=== PATIENT | female | born 1995 | race Caucasian/White ===

== ENCOUNTER 2020-01-02 14:30 | Emergency (ER) | payer SELFPAY ==
[~2020-01-02] VITALS: Ht 158 cm; Wt 67.6 kg
--- NOTE | 2020-01-02 15:23 | ED GU-Female ---
General Chief Complaint: Female Reproductive Stated Complaint: LOWER STOMACH PAIN,1 WEEK PREG Source: patient, family Exam Limitations: no limitations History of Present Illness Date Seen by Provider: Jan 02, 2020 Time Seen by Provider: 15:15 Initial Comments 24-year-old Maori speaking female presents with her , (also her tra nslator) with complaint of brown vaginal spotting for the past week. Positive test 2 weeks ago 2 at home. Has not seen an OB. This is her first . Allergies and Home Medications Patient Home Medication List Home Medication List Reviewed: Yes Review of Systems Review of Systems Constitutional: No fever, No malaise Respiratory: No cough, No dyspnea on exertion Cardiovascular: No chest pain, No edema Gastrointestinal: No abdominal pain, No loss of appetite, No nausea, No vomiting Genitourinary: see HPI; denies flank pain, denies hematuria Musculoskeletal: No back pain, No joint pain Past Rmoxulz-Liwjfl-Jzkrgi Hx Past Med/Social Hx: Reviewed Nursing Past Med/Soc Hx Patient Social History Recent Foreign Travel: No Contact w/Someone Who Travel: No Physical Exam Vital Signs Vital Signs - First Documented 01/02/20 14:45 Temp 36.6 Pulse 78 Resp 16 B/P (MAP) 139/72 (94) Pulse Ox 100 O2 Delivery Room Air Capillary Refill : Height, Weight, BMI Height: '" Weight: lbs. oz. kg; BMI Method: General Appearance: WD/WN, no apparent distress Cardiovascular: regular rate, rhythm, no edema Respiratory: chest non-tender, lungs clear Gastrointestinal: non tender, soft Back: normal inspection, no CVA tenderness Extremities: normal range of motion, non-tender, no pedal edema Neurologic/Psychiatric: no motor/sensory deficits, normal mood/affect Skin: normal color, warm/dry Progress/Results/Core Measures Suspected Sepsis SIRS Temperature: Pulse: Respiratory Rate: Blood Pressure / Mean: Results/Orders Lab Results Laboratory Tests Test 01/02/20 15:00 01/02/20 15:35 Range/Units Urine Test POSITIVE NEGATIVE Human Chorionic Gonadotropin, Quant 6257 H <5 MIU/ML My Orders Orders - BETHEL SPEAR DO Hcg,Qualitative Urine (01/02/20 14:46) Hcg,Quantitative (01/02/20 15:13) Us Ob<14 Wks Sngle W/Transvag (01/02/20 15:32) Vital Signs/I&O 01/02/20 14:45 Temp 36.6 Pulse 78 Resp 16 B/P (MAP) 139/72 (94) Pulse Ox 100 O2 Delivery Room Air Capillary Refill : Progress Note : Progress Note Ultrasound ordered prior to receiving results of quantitative hCG as echo vascular technologist is slated to leave the building in 30 minutes and we will not have results prior to that. Diagnostic Imaging Diagonstic Imaging: Xray Comments Date of Exam:01/02/20 US OB<14 WKS SNGLE W/TRANSVAG INDICATION: Bleeding and cramping during Obstetrical ultrasonography reveals Boyle intrauterine gestational sac with mean diameter of 0.7 cm. This would indicate gestational age of 5 weeks and 2 days. There is a small yolk sac however pole was not identified. Small adjacent hematoma is present with a small amount of fluid within the lower uterine segment. No maternal adnexal region abnormality is documented. IMPRESSION: Findings are compatible with early intrauterine gestation with small adjacent subchorionic hematoma. Estimated gestational age is 5 weeks and 2 days however short-term followup study in one week would be useful to document normal progression. Dictated on workstation # [id number] Dict: 01/02/20 1621 Trans: 01/02/20 1623 [facility] [id number] Interpreted by: RUFINO ZAYAS MD Electronically signed by: Departure Impression Primary Impression: Threatened in early Disposition: 01 HOME, SELF-CARE Condition: Stable Departure-Patient Inst. Patient Instructions: Threatened Miscarriage (DC) Add. Discharge Instructions: Call your OB doctor to arrange for follow up care in 2 days All discharge instructions reviewed with patient and/or family. Voiced understanding. BETHEL SPEAR DO Jan 02, 2020 15:23
--- NOTE | 2020-01-02 15:58 | NUR ---
Returned to room from her Transvaginal Ultrasound.
--- NOTE | 2020-01-02 16:10 | NUR ---
Escorted patient to bathroom and view 3 very small dk spots of older/dk blood. Feminine pad provided. Notified Dr Betancur.
[2020-01-02 16:20] VITALS: BP 134/69
--- NOTE | 2020-01-02 16:20 | NUR ---
Pt discharged to home after review of home instructions and translated by . Pt has only minute spotting of dk red x 3 spots after Transvaginal U/S completed. Reviewed the number on Quantative HCG to keep to give provider on f/u visit. Pt placed on pelvic rest till her OB provider gives her the ok to come off pelvic rest. They are to call to see if provider can move her appt up to this Tuesday.
--- NOTE | 2020-01-02 16:24 | Diagnostic Imaging Report ---
INDICATION: Bleeding and cramping during Obstetrical ultrasonography reveals Boyle intrauterine gestational sac with mean diameter of 0.7 cm. This would indicate gestational age of 5 weeks and 2 days. There is a small yolk sac however pole was not identified. Small adjacent hematoma is present with a small amount of fluid within the lower uterine segment. No maternal adnexal region abnormality is documented. IMPRESSION: Findings are compatible with early intrauterine gestation with small adjacent subchorionic hematoma. Estimated gestational age is 5 weeks and 2 days however short-term followup study in one week would be useful to document normal progression. Dictated by: Dictated on workstation # [id number]
== END 2020-01-02 16:20 | disposition home or self-care (01) ==
LOC: ER FS 14:34
DX: O20.0 Threatened abortion (principal); Z3A.01 Less than 8 weeks gestation of pregnancy
CPT/HCPCS: 36415; 76801; 76817; 84702; 84703

== ENCOUNTER 2020-01-05 08:38 | Emergency (ER) | payer SELFPAY ==
[~2020-01-05] VITALS: Ht 158 cm; Wt 67.6 kg
[2020-01-05 08:40] VITALS: BP 135/70
--- NOTE | 2020-01-05 09:31 | ED GU-Female ---
General Chief Complaint: Female Reproductive Stated Complaint: VAG BLEEDING FOR 2 WK - 3-4 WK PREG Nursing Triage Note: Pt presents with spouse for requested f/u of bleeding during early first trimester. Pt requires spouse to translate, she is non Beninese speaking. Seen 01/02/20 for beginning of cramping and spotting brown blood when wiping and HCG Quant 6257. LMP 11/24/19. 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 Nursing Sepsis Screen: No Definite Risk History of Present Illness Date Seen by Provider: Jan 05, 2020 Time Seen by Provider: 08:40 Initial Comments 24-year-old presents with continued vaginal bleeding for the past several days. Seen in this ER myself on January 01 for the same reason and had a transvaginal ultrasound as well as a Quant hCG of 6000, both confirming a viable IUP. See REPORT FOR DETAILS. WAS ADVISED TO FOLLOW-UP WITH OB IN 2 DAYS FOR REPEAT QUANT, HOWEVER WAS UNABLE TO BE SEEN SO HERE IN THE ER TODAY. No increased pain, just continued spotting and dark blood. Allergies and Home Medications Allergies Coded Allergies: No Known Drug Allergies (Unverified , 01/05/20) Patient Home Medication List Home Medication List Reviewed: Yes Review of Systems Review of Systems Constitutional: no symptoms reported; No dizziness, No fever, No malaise, No weakness Cardiovascular: No chest pain, No edema, No palpitations, No syncope Gastrointestinal: No abdominal pain; nausea; No vomiting Genitourinary: see HPI : Yes Expected Date of Delivery: September 03, 2019 Musculoskeletal: no symptoms reported Past Uwokzvj-Wxqtnc-Jisfob Hx Past Med/Social Hx: Reviewed Nursing Past Med/Soc Hx Patient Social History Alcohol Use: Denies Use Recreational Drug Use: No Smoking Status: Never a Smoker Recent Foreign Travel: No Contact w/Someone Who Travel: No Recent Infectious Disease Expo: No Recent Hopitalizations: No Physical Abuse: No Sexual Abuse: No Mistreated: No Fear: No Immunizations Up To Date Tetanus Booster (TDap): Unknown Seasonal Allergies Seasonal Allergies: No Past Medical History Surgeries: No Respiratory: No Cardiac: No Neurological: No : Yes Expected Date of Delivery: September 03, 2019 Last Menstrual Period: Nov 24, 2019 Hx : 1 Hx Para: 0 Genitourinary: No Gastrointestinal: No Musculoskeletal: No Endocrine: No HEENT: No Cancer: No Psychosocial: No Integumentary: No Blood Disorders: No Physical Exam Vital Signs Vital Signs - First Documented 01/05/20 08:40 Temp 36.6 Pulse 81 Resp 16 B/P (MAP) 135/70 (91) Pulse Ox 100 O2 Delivery Room Air Capillary Refill : Less Than 3 Seconds Height, Weight, BMI Height: '" Weight: lbs. oz. kg; 27.00 BMI Method: General Appearance: WD/WN, no apparent distress Neurologic/Psychiatric: alert, normal mood/affect Skin: normal color, warm/dry Progress/Results/Core Measures Suspected Sepsis Recent Fever Within 48 Hours: No Infection Criteria Present: None New/Unexplained Altered Menta: No Sepsis Screen: No Definite Risk SIRS Temperature: Pulse: 81 Respiratory Rate: 16 Blood Pressure 135 /70 Mean: 91 Results/Orders Lab Results Laboratory Tests Test 01/05/20 08:45 Range/Units Human Chorionic Gonadotropin, Quant [id number] H <5 MIU/ML My Orders Orders - BETHEL SPEAR DO Hcg,Quantitative (01/05/20 08:48) Vital Signs/I&O 01/05/20 08:40 Temp 36.6 Pulse 81 Resp 16 B/P (MAP) 135/70 (91) Pulse Ox 100 O2 Delivery Room Air Capillary Refill : Less Than 3 Seconds Blood Pressure Mean: 91 Progress Note : Progress Note Discussed encouraging quantitative hCG with appropriate doubling since previous level on January 01. Reassurance given, however explain that she was still a threatened miscarriage at this point. Advised follow up with OB, they agree and understand. Appointment scheduled on 13 January with new OB. Departure Impression Primary Impression: Threatened Disposition: 01 HOME, SELF-CARE Condition: Stable Departure-Patient Inst. Decision time for Depature: 09:30 Referrals: NO,LOCAL PHYSICIAN (PCP/Family) Primary Care Physician Patient Instructions: Threatened Miscarriage (DC) Add. Discharge Instructions: keep your follow up appointment with your OB provider on 13 January All discharge instructions reviewed with patient and/or family. Voiced understanding. BETHEL SPEAR DO Jan 05, 2020 09:30
== END 2020-01-05 09:30 | disposition home or self-care (01) ==
LOC: EDUNIT# 08:38 → ER FS 08:39
DX: O20.0 Threatened abortion (principal); Z3A.01 Less than 8 weeks gestation of pregnancy
CPT/HCPCS: 36415; 84702

== ENCOUNTER 2020-08-10 05:28 | Inpatient (IN) | payer MEDICAID ==
[2020-08-10] VITALS (77 sets, daily range): BP systolic 107–186; BP diastolic 48–117
[~2020-08-10] VITALS: Ht 162 cm; Wt 80.4 kg
[2020-08-10] MEDS ORDERED: PREN1TAB19 PO (05:39)
[2020-08-10] MEDS ORDERED: FAMO-144 PO (05:40)
[2020-08-10] MEDS ORDERED: D5 LR IV SOLUTION 1,000 ML IV ONE (05:40)
[2020-08-10] MEDS ORDERED: MINERAL OIL CONCENTRATE 99.9% 15 ML UDC TOP PRN (06:00)
[2020-08-10] MEDS ORDERED: CATHETER FLUSH 10 ML SYR IV SCH (06:00)
[2020-08-10 06:10] LABS: BASOPHILS % (AUTO) 0 % (0-10); EOSINOPHILS # (AUTO) 0.1 10^3/uL (0.0-0.3); EOSINOPHILS % (AUTO) 1 % (0-10); HEMATOCRIT 38 % (35-52); HEMOGLOBIN 13.3 g/dL (11.5-16.0); LYMPHOCYTES # (AUTO) 1.5 10^3/uL (1.0-4.0); LYMPHOCYTES % (AUTO) 14 % (12-44); MEAN CORPUSCULAR HEMOGLOBIN 33 pg (25-34); MEAN CORPUSCULAR HGB CONC 35 g/dL (32-36); MEAN CORPUSCULAR VOLUME 95 fL (80-99); MEAN PLATELET VOLUME 10.2 fL (9.0-12.2); MONOCYTES # (AUTO) 0.8 10^3/uL (0.0-1.0); MONOCYTES % (AUTO) 7 % (0-12); NEUTROPHILS # (AUTO) 8.1 10^3/uL (1.8-7.8); NEUTROPHILS % (AUTO) 75 % (42-75); PLATELET COUNT 190 10^3/uL (130-400); WHITE BLOOD COUNT 10.8 10^3/uL (4.3-11.0)
[2020-08-10] MEDS: D5 LR IV SOLUTION 1,000 ML IV SCH ×2 (06:29→14:00)
[2020-08-10] MEDS ORDERED: OXYTOCIN PRE-MIX DRIP 500 ML IV SCH ×2 (06:30→22:00)
[2020-08-10] MEDS ORDERED: AMPICILLIN FOR IV USE 2,000 MG in WATER (STERILE) FOR INJECTION 14.8 ML IV SCH (07:02)
[2020-08-10] MEDS ORDERED: AMPICILLIN 2,000 MG/14.8 ML (IV USE) ONE (07:06)
[2020-08-10] MEDS ORDERED: WATER (STERILE) FOR INJECTION 20 ML ONE (07:07)
--- NOTE | 2020-08-10 07:23 | History & Physical-OB ---
OB - Chief Complaint & HPI Date/Time Date of Admission: Date of Admission: August 10, 2020 at 05:50 Date seen by a Provider: August 10, 2020 Time Seen by a Provider: 07:18 (H&P completed from record review and RN report) Chief Complaint/History OB-Reason for Admission/Chief: Rupture of Membranes Hx : 1 Hx Para: 0 Expected Date of Delivery: September 01, 2020 Gestational Age in Weeks: 36 Gestational Age in Days: 6 History of Labs Blood type O neg; antibody negative HIV, RPR, Hep B non-reactive Pap normal GC/Chlam negative 1h GTT negative GBS pos Allergies and Home Medications Allergies Coded Allergies: No Known Drug Allergies (Unverified , 08/10/20) Home Medications Famotidine 10 Mg Tablet, 10 MG PO BID, (Reported) Last Action: Held Vit/Iron Fumarate/FA 1 Each Tablet, 1 EACH PO DAILY, (Reported) Last Action: Held Patient Home Medication List Home Medication List Reviewed: Yes OB - History Hx of Present Care: Yes Ultrasounds: Abnormal US findings Abnormal Ultrasound Findings: mild R pyelectasis noted on mid trimester US, sent to [facility] for Level 2 US on 06/25/20 which showed normal measurements. Obstetrical Complications: None Medical Complications: None Other Concerns: Concern for elevated BP during with normal lab evaluation and BPP (normal BPs in the clinic); hx of itching with normal bile acid salts. Information Induced Hypertension: No Maternal Gestational Diabetes: No Hemorrhage: No Obstetrical History Hx : 1 Hx Termination: No Hx Multiple Gestation: No Hx Ectopic : No Hx Stillbirth: No Hx Complication: No Hx Induced Hypertens: No Hx Maternal Gestational Diabet: No Hx Hemorrhage: No Delivery History Adverse Rxn to Tranfusion: No Patient Past Medical History denies Social History/Family History Alcohol Use: Denies Use Recreational Drug Use: No 2nd Hand Smoke Exposure: No Immunizations Hepatitis A: Yes Hepatitis B: Yes Tetanus Booster (TDap): Less than 5yrs (07/02/20) Date of Influenza Vaccine: Mar 12, 2020 Rubella: immune RPR/VDRL: Negative GBS Status: Positive HBsAG: Negative OB - Admission Exam Physical Exam Vitals: Vital Signs 08/10/20 08/10/20 06:00 07:12 Temp 36.7 Pulse 93 Resp 18 B/P (MAP) 135/80 (98) Pulse Ox 97 O2 Delivery Room Air Abdomen: Gravid Cervical Dilatation: 2cm Membranes: Ruptured Amniotic Fluid: Clear Accelerations: No Accelerations Contractions on Admission: 6-10 Minutes Apart Intensity: Mild Labs Laboratory Tests Test 08/10/20 06:00 Range/Units White Blood Count 10.8 4.3-11.0 10^3/uL Red Blood Count 4.04 3.80-5.11 10^6/uL Hemoglobin 13.3 11.5-16.0 g/dL Hematocrit 38 35-52 % Mean Corpuscular Volume 95 80-99 fL Mean Corpuscular Hemoglobin 33 25-34 pg Mean Corpuscular Hemoglobin Concent 35 32-36 g/dL Red Cell Distribution Width 13.3 10.0-14.5 % Platelet Count 190 130-400 10^3/uL Mean Platelet Volume 10.2 9.0-12.2 fL Immature Granulocyte % (Auto) 2 % Neutrophils (%) (Auto) 75 42-75 % Lymphocytes (%) (Auto) 14 12-44 % Monocytes (%) (Auto) 7 0-12 % Eosinophils (%) (Auto) 1 0-10 % Basophils (%) (Auto) 0 0-10 % Neutrophils # (Auto) 8.1 H 1.8-7.8 10^3/uL Lymphocytes # (Auto) 1.5 1.0-4.0 10^3/uL Monocytes # (Auto) 0.8 0.0-1.0 10^3/uL Eosinophils # (Auto) 0.1 0.0-0.3 10^3/uL Basophils # (Auto) 0.0 0.0-0.1 10^3/uL Immature Granulocyte # (Auto) 0.2 H 0.0-0.1 10^3/uL OB - Assessment/Plan/Diagnosis Assessment Assessment: group B positive strep, rupture of membranes Admission Dx G1 at 36w6d with SROM Admission Status: Inpatient Order (span 2 midnights) Reason for Inpatient Admission: Labor and delivery Plan Plan: Expectant Management Other Plan Antibiotic prophylaxis with Ampicillin Copy Copies To 1: LYUDMILA DEJESUS MD, LINDA K DO August 10, 2020 07:23
[2020-08-10] MEDS ORDERED: fentaNYL 2 mcg/ml BUPIVA 0.125 100 ML ONE (11:14)
[2020-08-10] MEDS ORDERED: fentaNYL INJ 100 MCG/2 ML AMP ONE (11:34)
[2020-08-10] MEDS ORDERED: BUPIVACAINE 0.25% 30 ML (SENSORCAINE) VIAL ONE (11:34)
[2020-08-10] MEDS ORDERED: LIDOCAINE PF 2% 5 ML (XYLOCAINE) VIAL ONE (11:34)
[2020-08-10] MEDS: AMPICILLIN FOR IV USE 1,000 MG in WATER (STERILE) FOR INJECTION 7.4 ML IV SCH ×2 (11:36→17:41)
[2020-08-10] MEDS ORDERED: LACTATED RINGERS 1,000 ML IV SCH (11:45)
[2020-08-10] MEDS ORDERED: NALOXONE 0.4 MG/ML 1 ML (NARCAN) VIAL IV PRN (11:45)
[2020-08-10] MEDS ORDERED: diphenhydrAMINE 50 MG/ML INJ (BENADRYL) IV PRN (11:45)
[2020-08-10] MEDS ORDERED: ONDANSETRON 4 MG/2 ML (SDV) Z0FRAN IV PRN (11:45)
[2020-08-10] MEDS ORDERED: EPIDURAL (fentaNYL 2 MCG/ML BUPIVA 0.125%)100 ML BAG EPI PRN (11:45)
--- NOTE | 2020-08-10 20:55 | OB Labor & Delivery Record ---
Vag Delivery Note Vag Delivery Note Date of Delivery: 08/10/20 Preoperative Diagnosis: Fatou Hugo is a (25 /Para 1 / 0, Gestational Age (wks)36with [] Postoperative Diagnosis: Same Surgeon: NAVEEN ABREU Anesthesia: Epidural Delivery Type: Vacuum Assisted Vaginal Delivery Findings: Viable male , apgars 8.9, weight 6#12 Lacerations: shear abrasions secondary to vacuum Intact placenta with 3 vessel cord. No nuchal cord, body cord or shoulder dystocia Estimated Blood Loss: 250 ml Complications: None Condition: Stable Description of Procedure: The patient is a 25 year old female who presented with SROM. She was admitted and informed consent was obtained. Her labor course was unremarkable. She progressed to complete dilatation and began to push. She was then set up for delivery. Mother became fatigued with less effective pushing. Initially a Mighty Vac vacuum was attempted to be applied, but the vaginal soft tissue swelling did not allow for appropriate contact to create an appropriate vaccum. Mom continued pushing then a Kiwi vac was placed with good suction. The 's head was delivered atraumatically via VAVD in the LUIS position. The shoulders and remainder of the infant's body were then delivered without difficulty. was placed on the maternal abdomen and was stimulated with spontaneous cry and goo tone. The cord was doubly clamped and cut. An intact placenta with 3-vessel cord delivered via Millie and there was found to be minimal bleeding.~ Vigorous fundal massage was performed and the fundus was found to be firm. IV oxytocin was given. Examination of the vagina and perineum revealed a several shear lacerations, the L labia laceration extended in a U- shape to the R labia and was repaired in the usual fashion with 3-0 vicryl suture. Following the repair, sponge, instrument and needle counts were correct. Mom and baby were both in stable condition in the labor suite. Vitals - Labs Vital Signs - I&O Vital Signs Date Time Temp Pulse Resp B/P (MAP) Pulse Ox O2 Delivery O2 Flow Rate FiO2 08/10/20 19:00 109 18 179/70 (106) Room Air 08/10/20 18:53 38.0 164 18 155/73 (100) Room Air 08/10/20 18:50 114 18 141/66 (91) Room Air 5/2/21 18:45 117 18 146/63 (90) Room Air 08/10/20 18:40 117 18 162/67 (98) Room Air 08/10/20 18:35 155 18 185/67 (106) Room Air 08/10/20 18:25 130 18 160/71 (100) Room Air 08/10/20 18:20 130 18 161/79 (106) Room Air 08/10/20 18:15 123 18 152/78 (102) Room Air 08/10/20 18:10 109 18 147/76 (99) 100 Room Air 08/10/20 17:55 114 18 148/66 (93) 99 Room Air 08/10/20 17:45 109 18 140/82 (101) 100 Room Air 08/10/20 17:40 99 18 133/82 (99) 99 Room Air 08/10/20 17:30 104 18 129/67 (87) 99 Room Air 08/10/20 17:15 107 18 122/65 (84) 99 Room Air 08/10/20 17:00 95 18 125/68 (87) 99 Room Air 08/10/20 16:45 97 18 131/69 (89) 99 Room Air 08/10/20 16:30 37.6 99 18 134/64 (87) 99 Room Air 08/10/20 16:15 91 18 122/70 (87) 99 Room Air 08/10/20 16:00 96 18 125/66 (85) 98 Room Air 08/10/20 15:45 85 18 122/70 (87) 98 Room Air 08/10/20 15:30 80 18 118/67 (84) 97 Room Air 08/10/20 15:15 96 18 117/66 (83) 97 Room Air 08/10/20 15:00 88 18 114/69 (84) 98 Room Air 08/10/20 14:45 101 18 124/68 (86) 98 Room Air 08/10/20 14:30 100 18 122/64 (83) 99 Room Air 08/10/20 14:15 88 18 122/61 (81) 98 Room Air 08/10/20 14:00 112 18 123/71 (88) 99 Room Air 08/10/20 13:45 96 18 116/63 (80) 97 Room Air 08/10/20 13:30 93 18 111/59 (76) 99 Room Air 08/10/20 13:15 37.2 91 18 136/67 (90) 99 Room Air 08/10/20 13:00 89 18 123/63 (83) 99 Room Air 08/10/20 12:50 107 18 118/64 (82) 99 Room Air 08/10/20 12:45 90 18 122/63 (82) 99 Room Air 08/10/20 12:40 93 18 126/61 (82) 99 Room Air 08/10/20 12:35 94 18 127/62 (83) 99 Room Air 08/10/20 12:30 108 18 107/60 (76) 99 Room Air 08/10/20 12:25 36.8 100 18 132/72 (92) 99 Room Air 08/10/20 12:20 107 18 125/68 (87) 99 Room Air 08/10/20 12:16 90 18 129/68 (88) 99 Room Air 08/10/20 12:12 72 18 115/60 (78) 99 Room Air 08/10/20 12:08 68 18 109/48 (68) 99 Room Air 08/10/20 12:05 84 18 111/54 (73) 99 Room Air 08/10/20 12:00 105 18 147/89 (108) 98 Room Air 08/10/20 11:58 106 18 152/76 (101) 98 Room Air 08/10/20 11:55 116 18 144/82 (102) 98 Room Air 08/10/20 11:40 96 18 131/67 (88) 98 Room Air 08/10/20 11:25 91 18 123/67 (85) 98 Room Air 08/10/20 11:05 97 18 133/80 (97) 98 Room Air 08/10/20 10:50 92 18 132/62 (85) 98 Room Air 08/10/20 10:35 85 18 126/73 (90) 98 Room Air 08/10/20 10:20 80 18 123/64 (83) 98 Room Air 08/10/20 10:05 80 18 124/67 (86) 98 Room Air 08/10/20 09:55 82 18 130/60 (83) 98 Room Air 08/10/20 09:35 88 18 129/61 (83) 98 Room Air 08/10/20 09:20 93 18 127/58 (81) 98 Room Air 08/10/20 09:05 87 18 130/61 (84) 98 Room Air 08/10/20 08:50 86 18 126/61 (82) 97 Room Air 08/10/20 08:40 83 18 115/72 (86) 98 Room Air 08/10/20 08:20 80 18 121/64 (83) 97 Room Air 08/10/20 08:10 83 18 118/67 (84) 96 Room Air 08/10/20 07:50 87 18 114/68 (83) 98 Room Air 08/10/20 07:35 83 18 114/77 (89) 98 Room Air 08/10/20 07:22 36.3 88 18 123/69 (87) 98 Room Air 08/10/20 07:12 36.7 93 18 97 Room Air 08/10/20 07:00 93 18 97 Room Air 08/10/20 06:19 36.7 102 18 98 Room Air 08/10/20 06:00 36.7 102 18 135/80 (98) 98 Room Air Labs Laboratory Tests 08/10/20 06:00: White Blood Count 10.8, Red Blood Count 4.04, Hemoglobin 13.3, Hematocrit 38, Mean Corpuscular Volume 95, Mean Corpuscular Hemoglobin 33, Mean Corpuscular Hemoglobin Concent 35, Red Cell Distribution Width 13.3, Platelet Count 190, So n Platelet Volume 10.2, Immature Granulocyte % (Auto) 2, Neutrophils (%) (Auto) 75, Lymphocytes (%) (Auto) 14, Monocytes (%) (Auto) 7, Eosinophils (%) (Auto) 1, Basophils (%) (Auto) 0, Neutrophils # (Auto) 8.1H, Lymphocytes # (Auto) 1.5, Monocytes # (Auto) 0.8, Eosinophils # (Auto) 0.1, Basophils # (Auto) 0.0, Immature Granulocyte # (Auto) 0.2H NAVEEN ABREU DO August 10, 2020 20:55
[2020-08-10] MEDS ORDERED: BENZOCAINE/MENTHOL (DERMOPLAST) 56 ML CAN TP PRN (22:00)
[2020-08-10] MEDS ORDERED: WITCH HAZEL(TUCKS) 40 EA JAR TOP PRN (22:00)
[2020-08-10] MEDS: IBUPROFEN 600 MG (MOTRIN) TAB PO SCH (23:15)
[2020-08-10] MEDS: ACETAMINOPHEN 500 MG TAB (TYLENOL) PO SCH (23:15)
[2020-08-11 02:30] VITALS: BP 126/64
[2020-08-11] MEDS: IBUPROFEN 600 MG (MOTRIN) TAB PO SCH ×4 (05:42→23:58)
[2020-08-11] MEDS: ACETAMINOPHEN 500 MG TAB (TYLENOL) PO SCH ×3 (05:42→21:45)
[2020-08-11 05:43] VITALS: BP 115/61
[2020-08-11 05:48] LABS: BASOPHILS % (AUTO) 0 % (0-10); EOSINOPHILS # (AUTO) 0.1 10^3/uL (0.0-0.3); EOSINOPHILS % (AUTO) 0 % (0-10); HEMATOCRIT 33 % (35-52); HEMOGLOBIN 11.2 g/dL (11.5-16.0); LYMPHOCYTES # (AUTO) 1.6 10^3/uL (1.0-4.0); LYMPHOCYTES % (AUTO) 10 % (12-44); MEAN CORPUSCULAR HEMOGLOBIN 33 pg (25-34); MEAN CORPUSCULAR HGB CONC 34 g/dL (32-36); MEAN CORPUSCULAR VOLUME 97 fL (80-99); MEAN PLATELET VOLUME 10.4 fL (9.0-12.2); MONOCYTES # (AUTO) 1.3 10^3/uL (0.0-1.0); MONOCYTES % (AUTO) 8 % (0-12); NEUTROPHILS # (AUTO) 13.2 10^3/uL (1.8-7.8); NEUTROPHILS % (AUTO) 81 % (42-75); PLATELET COUNT 186 10^3/uL (130-400); WHITE BLOOD COUNT 16.2 10^3/uL (4.3-11.0)
[2020-08-11] MEDS: CATHETER FLUSH 10 ML SYR IV SCH ×2 (07:59→08:00)
--- NOTE | 2020-08-11 08:41 | Anesthesia-Regional Post-Op ---
Regional Patient Condition Mental Status: Alert, Oriented x3 Circulation: Same as Pre-Op Headache: Absent Sensation: Full Recovery Motor Block: Absent Post Op Complications Complications None Follow Up Care/Instructions Patient Instructions None needed. Anesthesia/Patient Condition Patient is doing well, no complaints, stable vital signs, no apparent adverse anesthesia problems. No complications reported per nursing. ROSIO CHENEY CRNA August 11, 2020 08:41
[2020-08-11] MEDS: DOCUSATE SODIUM 100 MG (COLACE) CAP PO SCH ×2 (08:55→20:05)
[2020-08-11] MEDS: HYDROcodone/APAP 5 MG/325 MG (LORTAB) TAB PO PRN ×3 (08:56→20:05)
--- NOTE | 2020-08-11 09:43 | Progress Note ---
Subjective Subjective/Events-last exam Generally doing well, c/o of vaginal pain. Minimal cramping and vaginal bleeding has slowed. Breast feeding. Objective Exam Last Set of Vital Signs Vital Signs Date Time Temp Pulse Resp B/P (MAP) Pulse Ox O2 Delivery O2 Flow Rate FiO2 08/11/20 05:43 36.5 81 18 115/61 (79) Room Air 08/10/20 18:10 100 Capillary Refill : NONE I&O Intake and Output 08/11/20 00:00 Intake Total 500 ml Balance 500 ml Intake IV Total 500 ml Daily Weight Change No General: Alert, Oriented X3, Cooperative Abdomen: Soft, Other (uterus firm) Psych/Mental Status: Mood NL Results/Procedures Lab Laboratory Tests 08/11/20 05:10: White Blood Count 16.2H, Red Blood Count 3.40L, Hemoglobin 11.2L, Hematocrit 33L , Mean Corpuscular Volume 97, Mean Corpuscular Hemoglobin 33, Mean Corpuscular Hemoglobin Concent 34, Red Cell Distribution Width 13.6, Platelet Count 186, Mean Platelet Volume 10.4, Immature Granulocyte % (Auto) 1, Neutrophils (%) (Auto) 81H, Lymphocytes (%) (Auto) 10L, Monocytes (%) (Auto) 8, Eosinophils (%) (Auto) 0, Basophils (%) (Auto) 0, Neutrophils # (Auto) 13.2H, Lymphocytes # (Auto) 1.6, Monocytes # (Auto) 1.3H, Eosinophils # (Auto) 0.1, Basophils # (Auto) 0.0, Immature Granulocyte # (Auto) 0.1 Assessment/Plan Assessment/Plan (1) Status post vacuum-assisted vaginal delivery Onset Date: ~ 08/10/2020 Assessment & Plan: VAVD with Kiwi vacuum following SROM at 36w6d and maternal fatigue and ineffective pushing after 2 hours of pushing. PPD#1 - doing well Routine care. Anticipate DC home tomorrow. F/U with Dr. Brown in [place] (2) Group B streptococcal infection during Assessment & Plan: Treated with 3 doses of ampicillin prior to delivery. NAVEEN ABREU DO August 11, 2020 09:43
[2020-08-11] MEDS ORDERED: DIBUCAINE 1% OINTMENT 30 GM TUBE TOP PRN (10:00)
[2020-08-11 12:15] VITALS: BP 132/66
[2020-08-11 18:30] VITALS: BP 123/66
[2020-08-11 20:00] VITALS: BP 132/59
[2020-08-12 00:11] VITALS: BP 112/58
[2020-08-12] MEDS: IBUPROFEN 600 MG (MOTRIN) TAB PO SCH ×3 (05:44→18:21)
[2020-08-12 05:45] VITALS: BP 113/65
[2020-08-12] MEDS: ACETAMINOPHEN 500 MG TAB (TYLENOL) PO SCH ×4 (06:29→18:21)
[2020-08-12] MEDS: DOCUSATE SODIUM 100 MG (COLACE) CAP PO SCH (09:38)
[2020-08-12 12:30] VITALS: BP 119/64
[2020-08-12] MEDS: HYDROcodone/APAP 5 MG/325 MG (LORTAB) TAB PO PRN (12:30)
[2020-08-12] MEDS ORDERED: polyethylene glycoL POWDER 17 GM (MIRALAX) PACK PO ONE (12:45)
--- NOTE | 2020-08-12 16:57 | Progress Note ---
Subjective Subjective/Events-last exam Doing well. Vaginal pain improving. C/o constipation. Objective Exam Last Set of Vital Signs Vital Signs Date Time Temp Pulse Resp B/P (MAP) Pulse Ox O2 Delivery O2 Flow Rate FiO2 08/12/20 12:30 36.8 95 18 119/64 (82) 97 08/11/20 18:30 Room Air Capillary Refill : NONE I&O Intake and Output 08/12/20 00:00 Intake Total 500 ml Balance 500 ml Intake IV Total 500 ml General: Alert, Oriented X3, Cooperative Psych/Mental Status: Mood NL Assessment/Plan Assessment/Plan (1) Status post vacuum-assisted vaginal delivery Onset Date: ~ 08/10/2020 Assessment & Plan: VAVD with Kiwi vacuum following SROM at 36w6d and maternal fatigue and ineffective pushing after 2 hours of pushing. PPD#2 - doing well Routine care. Colace daily and Miralax prn constipation. F/U with Dr. Brown in [place] (2) Group B streptococcal infection during Assessment & Plan: Treated with 3 doses of ampicillin prior to delivery. NAVEEN ABREU DO August 12, 2020 16:57
[2020-08-12] MEDS ORDERED: IBUP-844 PO (17:10)
[2020-08-12] MEDS ORDERED: ACET-93 PO (17:10)
[2020-08-12] MEDS ORDERED: POLY17PO6 PO (17:10)
--- NOTE | 2020-08-12 17:12 | Short Stay Summary ---
Discharge Summary Hospital Course Problems/Dx: (1) Status post vacuum-assisted vaginal delivery Assessment & Plan: PPD#2 - doing well Routine care. Colace daily and Miralax prn constipation. F/U with Dr. Brown in [place] (2) Group B streptococcal infection during Assessment & Plan: Treated with 3 doses of ampicillin prior to delivery. Final Diagnosis: see problem list Hospital Course Date of Admission: August 10, 2020 at 05:50 Date of Discharge: 08/12/20 Labs and Pending Lab Test: Laboratory Tests 08/10/20 06:00: White Blood Count 10.8, Red Blood Count 4.04, Hemoglobin 13.3, Hematocrit 38, Mean Corpuscular Volume 95, Mean Corpuscular Hemoglobin 33, Mean Corpuscular Hemoglobin Concent 35, Red Cell Distribution Width 13.3, Platelet Count 190, Mean Platelet Volume 10.2, Immature Granulocyte % (Auto) 2, Neutrophils (%) (Auto) 75, Lymphocytes (%) (Auto) 14, Monocytes (%) (Auto) 7, Eosinophils (%) (Auto) 1, Basophils (%) (Auto) 0, Neutrophils # (Auto) 8.1H, Lymphocytes # (Auto) 1.5, Monocytes # (Auto) 0.8, Eosinophils # (Auto) 0.1, Basophils # (Auto) 0.0, Immature Granulocyte # (Auto) 0.2H 08/11/20 05:10: White Blood Count 16.2H, Red Blood Count 3.40L, Hemoglobin 11.2L, Hematocrit 33L, Mean Corpuscular Volume 97, Mean Corpuscular Hemoglobin 33, Mean Corpuscular Hemoglobin Concent 34, Red Cell Distribution Width 13.6, Platelet Count 186, Mean Platelet Volume 10.4, Immature Granulocyte % (Auto) 1, Neutrophils (%) (Auto) 81H, Lymphocytes (%) (Auto) 10L, Monocytes (%) (Auto) 8, Eosinophils (%) (Auto) 0, Basophils (%) (Auto) 0, Neutrophils # (Auto) 13.2H, Lymphocytes # (Auto) 1.6, Monocytes # (Auto) 1.3H, Eosinophils # (Auto) 0.1, Basophils # (Auto) 0.0, Immature Granulocyte # (Auto) 0.1 Home Meds Active Reported Acid Community Services Officer (FAMOTIDINE) (Famotidine) 10 Mg Tablet 10 Mg PO BID Vitamins Tablet ( Vit/Iron Fumarate/FA) 1 Each Tablet 1 Each PO DAILY Assessment/Pt Instructions Follow-up with Dr. Brown in [place] in 6wk. Discharge Instructions Discharge Diet: No Restrictions Activity as Tolerated: Yes Discharge Physical Examination General Appearance: Alert, Oriented X3, Cooperative Psych/Mental Status: Mood NL Allergies: Coded Allergies: No Known Drug Allergies (Unverified , 08/10/20) Discharge Summary Date of Admission August 10, 2020 at 05:50 Date of Discharge NAVEEN ABREU DO August 12, 2020 17:12
[2020-08-12 18:30] VITALS: BP 121/66
[2020-08-12 20:20] VITALS: BP 120/73
[2020-08-13] MEDS ORDERED: FAMO-119 PO (05:25)
== END 2020-08-12 20:20 | disposition home or self-care (01) | DRG 806 ==
LOC: WSo 05:28 → LDRP 05:30 → WSo 05:49 → LDRP 05:50
PROVIDERS: ADMIT Family Medicine; ATTEND Family Medicine
PROC: 10D07Z6 Extraction of Products of Conception, Vacuum, Via Natural or Artificial Opening (ICD-10-PCS; principal; 2020-08-10)
PROC: 0HQ9XZZ Repair Perineum Skin, External Approach (ICD-10-PCS; 2020-08-10)
DX: O42.913 Preterm premature rupture of membranes, unspecified as to length of time between rupture and onset of labor, third trimester (principal); O98.82 Other maternal infectious and parasitic diseases complicating childbirth; Z37.0 Single live birth; Z3A.36 36 weeks gestation of pregnancy; O70.0 First degree perineal laceration during delivery; O26.813 Pregnancy related exhaustion and fatigue, third trimester; B95.1 Streptococcus, group B, as the cause of diseases classified elsewhere
CPT/HCPCS: 36415; 83033; 85025; 86850; 86900; 86901; 99212

== ENCOUNTER 2020-08-13 01:49 | Emergency (ER) | payer MEDICAID ==
[~2020-08-13] VITALS: Ht 158 cm; Wt 72.7 kg
[~2020-08-13 01:49] MED LIST: ACET-93 PO; FAMO-144 PO; IBUP-844 PO; POLY17PO6 PO; PREN1TAB19 PO
[2020-08-13] MEDS ORDERED: FAMOTIDINE 20MG/2ML IV (PEPCID) IV STA (03:28)
[2020-08-13] MEDS ORDERED: ONDANSETRON 4 MG/2 ML (SDV) Z0FRAN IVP ONE (03:30)
[2020-08-13] MEDS ORDERED: ANTACID SUSP 30 ML UDC (MYLANTA) PO ONE (03:30)
[2020-08-13] MEDS ORDERED: LIDOCAINE 2% VISCOUS 15 ML UDC PO ONE (03:30)
[2020-08-13 03:39] LABS: BASOPHILS # (AUTO) 0.1 10^3/uL (0.0-0.1); BASOPHILS % (AUTO) 1 % (0-10); EOSINOPHILS # (AUTO) 0.2 10^3/uL (0.0-0.3); EOSINOPHILS % (AUTO) 2 % (0-10); HEMATOCRIT 36 % (35-52); HEMOGLOBIN 12.2 g/dL (11.5-16.0); LYMPHOCYTES # (AUTO) 1.8 10^3/uL (1.0-4.0); LYMPHOCYTES % (AUTO) 16 % (12-44); MEAN CORPUSCULAR HEMOGLOBIN 33 pg (25-34); MEAN CORPUSCULAR HGB CONC 34 g/dL (32-36); MEAN CORPUSCULAR VOLUME 95 fL (80-99); MEAN PLATELET VOLUME 10.4 fL (9.0-12.2); MONOCYTES # (AUTO) 0.7 10^3/uL (0.0-1.0); MONOCYTES % (AUTO) 6 % (0-12); NEUTROPHILS # (AUTO) 8.6 10^3/uL (1.8-7.8); NEUTROPHILS % (AUTO) 75 % (42-75); PLATELET COUNT 222 10^3/uL (130-400); WHITE BLOOD COUNT 11.5 10^3/uL (4.3-11.0)
[2020-08-13 03:53] LABS: ALBUMIN 3.6 GM/DL (3.2-4.5); CHLORIDE 108 MMOL/L (98-107); POTASSIUM 3.9 MMOL/L (3.6-5.0); SODIUM 142 MMOL/L (135-145)
[2020-08-13 03:54] LABS: CALCIUM 9.2 MG/DL (8.5-10.1)
[2020-08-13 03:55] LABS: GLUCOSE 89 MG/DL (70-105); TOTAL PROTEIN 6.6 GM/DL (6.4-8.2)
[2020-08-13 03:56] LABS: CARBON DIOXIDE 22 MMOL/L (21-32)
[2020-08-13 03:57] LABS: BILIRUBIN,TOTAL 0.3 MG/DL (0.1-1.0)
[2020-08-13 03:59] LABS: ALKALINE PHOSPHATASE 136 U/L (40-136); GFR ESTIMATED > 60
[2020-08-13 04:00] LABS: BUN/CREATININE RATIO 12
[2020-08-13 04:02] LABS: ALANINE AMINOTRANSFERASE 31 U/L (0-55); MAGNESIUM 1.9 MG/DL (1.6-2.4)
[2020-08-13 04:03] LABS: LIPASE 15 U/L (8-78)
--- NOTE | 2020-08-13 05:17 | Diagnostic Imaging Report ---
INDICATION: Chest pain Portable chest 4:29 AM Heart size and pulmonary vascularity are normal. Lungs are clear. There are no effusions or pneumothoraces. IMPRESSION: Negative chest Dictated by: Dictated on workstation # [id number]
[2020-08-13] MEDS ORDERED: FAMO-119 PO (05:25)
--- NOTE | 2020-08-13 05:25 | ED General ---
General Chief Complaint: Chest Pain Stated Complaint: CP Nursing Triage Note: PRESENTS TO ROOM #3 VIA W/C AFTER BEING DISCHARGED FROM OB FLOOR. STATES AT 1999 SHE BEGAN TO EXPERIENCE L SIDED CHEST DISCOMFORT AND SENSATIONS OF HER HEART POUNDING. STATES THROUGHOUT THE DAY OF 08/12/20 SHE HAS BEEN EXPERIENCING INTERMITTENT VISUAL CHANGES AND LIGHT HEADEDNESS. STATES ON 08/10/20 SHE HAD A VAGINAL DELIVERY AND HAS REMAINED INPATIENT IN OB CARE SINCE . AT SIDE TRANSLATING FOR PT. 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 She was discharged from the hospital yesterday after having a vaginal delivery. Pain is reproducible with palpation of the chest and left upper quadrant. Lying flat makes it worse. Her delivery was on Tuesday. She denies shortness of breath. She has some nausea. No cough. Feet have been more swollen. Pain is a little worse with deep breathing. She is afebrile. She denies any significant medical history. and emergency medical tech line were used to assist with communication. Patient describes brief episodes of blurry vision but are no longer present. Allergies and Home Medications Allergies Coded Allergies: No Known Drug Allergies (Unverified , 08/10/20) Home Medications Acetaminophen 500 Mg Tablet, 1,000 MG PO Q6HR PRN for PAIN-MILD (1-4) Prescribed by: NAVEEN ABREU on 08/12/201709 Famotidine 20 Mg Tablet, 20 MG PO BID Prescribed by: GEMINI CHUNG on 08/13/20 0525 Ibuprofen 600 Mg Tablet, 600 MG PO Q6HR PRN for CRAMPS Prescribed by: NAVEEN ABREU on 08/12/201709 Polyethylene Glycol 3350 17 Gm Powd.pack, 17 GM PO DAILY PRN for CONSTIPATION- 1ST LINE Prescribed by: NAVEEN ABREU on 08/12/201709 Vit/Iron Fumarate/FA 1 Each Tablet, 1 EACH PO DAILY, (Reported) Patient Home Medication List Home Medication List Reviewed: Yes Review of Systems Review of Systems Constitutional: no symptoms reported EENTM: see HPI Respiratory: see HPI Cardiovascular: see HPI Gastrointestinal: see HPI Genitourinary: no symptoms reported Skin: no symptoms reported Psychiatric/Neurological: No Symptoms Reported Hematologic/Lymphatic: No Symptoms Reported Immunological/Allergic: no symptoms reported Past Uoeibqt-Ycuknq-Pkycco Hx Past Med/Social Hx: Reviewed Nursing Past Med/Soc Hx Patient Social History Alcohol Use: Denies Use Smoking Status: Never a Smoker 2nd Hand Smoke Exposure: No Recent Infectious Disease Expo: No Recent Hopitalizations: No Immunizations Up To Date Tetanus Booster (TDap): Less than 5yrs Date of Influenza Vaccine: Mar 12, 2020 Seasonal Allergies Seasonal Allergies: No Past Medical History Surgeries: No Respiratory: No Cardiac: No Neurological: No Genitourinary: No Gastrointestinal: No Musculoskeletal: No Endocrine: No HEENT: No Cancer: No Psychosocial: No Integumentary: No Blood Disorders: No Adverse Reaction/Blood Tranf: No Physical Exam Vital Signs Vital Signs - First Documented Capillary Refill : Less Than 3 Seconds Height, Weight, BMI Height: '" Weight: lbs. oz. 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 Norm as Tested Skin: Normal Color, Warm/Dry Progress/Results/Core Measures Suspected Sepsis Recent Fever Within 48 Hours: No Infection Criteria Present: None New/Unexplained Altered Menta: No Sepsis Screen: No Definite Risk SIRS Temperature: Pulse: 87 Respiratory Rate: 18 Laboratory Tests 08/13/20 03:30: White Blood Count 11.5H Blood Pressure 124 /91 Mean: 102 Laboratory Tests 08/13/20 03:30: Creatinine 0.60, Platelet Count 222, Total Bilirubin 0.3 Results/Orders Lab Results Laboratory Tests Test 08/13/20 03:30 Range/Units White Blood Count 11.5 H 4.3-11.0 10^3/uL Red Blood Count 3.72 L 3.80-5.11 10^6/uL Hemoglobin 12.2 11.5-16.0 g/dL Hematocrit 36 35-52 % Mean Corpuscular Volume 95 80-99 fL Mean Corpuscular Hemoglobin 33 25-34 pg Mean Corpuscular Hemoglobin Concent 34 32-36 g/dL Red Cell Distribution Width 13.4 10.0-14.5 % Platelet Count 222 130-400 10^3/uL Mean Platelet Volume 10.4 9.0-12.2 fL Immature Granulocyte % (Auto) 1 % Neutrophils (%) (Auto) 75 42-75 % Lymphocytes (%) (Auto) 16 12-44 % Monocytes (%) (Auto) 6 0-12 % Eosinophils (%) (Auto) 2 0-10 % Basophils (%) (Auto) 1 0-10 % Neutrophils # (Auto) 8.6 H 1.8-7.8 10^3/uL Lymphocytes # (Auto) 1.8 1.0-4.0 10^3/uL Monocytes # (Auto) 0.7 0.0-1.0 10^3/uL Eosinophils # (Auto) 0.2 0.0-0.3 10^3/uL Basophils # (Auto) 0.1 0.0-0.1 10^3/uL Immature Granulocyte # (Auto) 0.1 0.0-0.1 10^3/uL Sodium Level 142 135-145 MMOL/L Potassium Level 3.9 3.6-5.0 MMOL/L Chloride Level 108 H 98-107 MMOL/L Carbon Dioxide Level 22 21-32 MMOL/L Anion Gap 12 5-14 MMOL/L Blood Urea Nitrogen 7 7-18 MG/DL Creatinine 0.60 0.60-1.30 MG/DL Estimat Glomerular Filtration Rate > 60 BUN/Creatinine Ratio 12 Glucose Level 89 70-105 MG/DL Calcium Level 9.2 8.5-10.1 MG/DL Corrected Calcium 9.5 8.5-10.1 MG/DL Magnesium Level 1.9 1.6-2.4 MG/DL Total Bilirubin 0.3 0.1-1.0 MG/DL Aspartate Amino Transf (AST/SGOT) 32 5-34 U/L Alanine Aminotransferase (ALT/SGPT) 31 0-55 U/L Alkaline Phosphatase 136 40-136 U/L Total Protein 6.6 6.4-8.2 GM/DL Albumin 3.6 3.2-4.5 GM/DL Lipase 15 8-78 U/L My Orders Orders - GEMINI ALMANZAR MD Cbc With Automated Diff (08/13/20 03:08) Comprehensive Metabolic Panel (08/13/20 03:08) Magnesium (08/13/20 03:08) Ed Iv/Invasive Line Start (08/13/20 03:08) Ekg Tracing (08/13/20 03:08) Monitor-Rhythm Ecg Trace Only (08/13/20 03:08) Lipase (08/13/20 03:28) Ondansetron Injection (Zofran Injectio (08/13/20 03:30) Lidocaine 2% Viscous 15 Ml (Xylocaine Vi (08/13/20 03:30) Antacid Suspension (Mylanta Suspension (08/13/20 03:30) Famotidine Injection (Pepcid Injection) (08/13/20 03:28) Chest 1 View, Ap/Pa Only (08/13/20 04:09) Medications Given in ED Current Medications Medications Dose Ordered Sig/Kalina Route Start Time Stop Time Status Last Admin Dose Admin Al Hydrox/Mg Hydrox/Simethicone 30 ml ONCE ONCE PO 08/13/20 03:30 08/13/20 03:31 DC 08/13/20 03:46 30 ML Lidocaine HCl 15 ml ONCE ONCE PO 08/13/20 03:30 08/13/20 03:31 DC 08/13/20 03:46 15 ML Ondansetron HCl 4 mg ONCE ONCE IVP 08/13/20 03:30 08/13/20 03:31 DC 08/13/20 03:45 4 MG Vital Signs/I&O 08/13/20 08/13/20 08/13/20 02:12 02:12 05:30 Temp 36.5 36.5 Pulse 87 105 Resp 18 19 B/P (MAP) 124/91 (102) 120/100 (102) Pulse Ox 97 99 O2 Delivery Room Air Room Air Room Air Capillary Refill : Less Than 3 Seconds Blood Pressure Mean: 102 Progress Note : Progress Note Patient was seen and evaluated. She was treated with Pepcid, Zofran, and GI cocktail which resolved her chest pain. Work-up was otherwise unremarkable. She had one brief episode of lightheadedness and visual disturbance while pushing IV medications. This lasted only a few seconds and resolved. It seems psychogenic related to medical procedure. Patient was anxious to be discharged after work-up was complete. ECG Initial ECG Impression Date: August 13, 2020 Initial ECG Impression Time: 02:19 Initial ECG Rate: 83 Initial ECG Rhythm: Normal Sinus Initial ECG Intervals: Normal Initial ECG Impression: Normal Comment Normal sinus rhythm with no ST elevation or depression. No abnormal intervals or axis deviation. Diagnostic Imaging Diagonstic Imaging: Xray Plain Films/CT/US/NM/MRI: chest Comments Chest x-ray viewed by me. Report not yet available. No acute abnormalities appreciated. Departure Impression Primary Impression: Epigastric pain Additional Impression: Atypical chest pain Disposition: HOME, SELF-CARE Condition: Improved Departure-Patient Inst. Decision time for Depature: 05:23 Referrals: LYUDMILA DEJESUS MD (PCP/Family) Primary Care Physician Patient Instructions: Acid Reflux and Gastroesophageal Reflux Disease in Adults, Chest Pain That Is Not Caused by the Heart (DC), Gastritis Add. Discharge Instructions: Take Pepcid as prescribed twice daily for the next couple of weeks. Follow-up with your primary care provider soon as possible. Return to care if you have worsening symptoms. All discharge instructions reviewed with patient and/or family. Voiced understanding. Scripts Famotidine (Pepcid) 20 Mg Tablet 20 MG PO BID, #30 TAB Prov: GEMINI ALMANZAR MD 08/13/20 Copy Copies To 1: LYUDMILA DEJESUS MD, JOSHUA T MD August 13, 2020 05:25
[2020-08-13 05:30] VITALS: BP 120/100
== END 2020-08-13 05:30 | disposition home or self-care (01) ==
LOC: EDUNIT# 01:49 → ER 01:53
DX: R10.13 Epigastric pain (principal); R07.89 Other chest pain
CPT/HCPCS: 36415; 71045; 80053; 83690; 83735; 85025; 93005; 93041